=== PATIENT | male | born 1950 | race Caucasian/White ===

== ENCOUNTER → 2016-07-04 | Outpatient (CLI) | payer BC ==
[2016-07-04 17:49] LABS: BLOOD UREA NITROGEN 27 mg/dl (7-18)
== END | disposition home or self-care (01) ==
LOC: C.LABBC 14:12
PROVIDERS: ATTEND Psychiatry & Neurology Neurology
DX: R90.89 Other abnormal findings on diagnostic imaging of central nervous system (principal)

== ENCOUNTER → 2016-07-08 | Outpatient (CLI) | payer BC ==
[~2016-07-08] MED LIST: GADAVIST IV PRN
--- NOTE | 2016-07-08 10:35 | DIAGNOSTIC IMAGING REPORT ---
MRI OF THE BRAIN WITHOUT AND WITH IV CONTRAST CLINICAL HISTORY: ABNORMAL BRAIN MRI COMPARISON STUDY: 08/07/2015 TECHNIQUE: Utilizing a 1.5 Shayy magnet and dedicated coil, multiplanar, multiecho imaging of the brain was performed pre and postcontrast administration. IV administration of 8.5 mL of Gadavist contrast was uneventful. FINDINGS: Unchanged exam. Diffuse dural/meningeal enhancement unchanged from the prior study. Given general stability this may be secondary to a prior incident of intracranial hypotension. Findings of atrophy and chronic small vessel change, are unaltered from the prior exam. No abnormal postcontrast parenchymal enhancement. No abnormal ventricular enhancement. Parasellar region is unremarkable. Internal auditory canals are symmetric. IMPRESSION: 1. Unchanged bilateral dural and meningeal enhancement. 2. Given its unchanged appearance compared to the prior study this is most likely benign, possibly related to a prior episode of hypotension intracranially. 3. Stable components of the cerebellar as well as cerebral atrophy and mild chronic small vessel change. Electronically signed by: Beltran Argueta M.D. 07/08/2016 10:33 AM Dictated Date/Time: 07/08/2016 10:26 AM
== END | disposition home or self-care (01) ==
LOC: C.MRIBC 09:26
PROVIDERS: ATTEND Psychiatry & Neurology Neurology
DX: R90.89 Other abnormal findings on diagnostic imaging of central nervous system (principal)

== ENCOUNTER → 2016-10-25 | Outpatient (CLI) | payer BC ==
[2016-10-25 13:43] LABS: BASO % 0.9 %; BASO ABS # 0.06 K/uL (0-0.2); COMPLETE YES; EOS % 2.3 %; HEMATOCRIT 42.8 % (42-52); IG% 0.2 %; LYMPH % 26.8 %; LYMPH ABS # 1.78 K/uL (1.2-3.4); MEAN CELL VOLUME 88.8 fL (80-100); MEAN CORPUSCULAR HEMOGLOBIN 31.1 pg (25-34); MEAN PLATELET VOLUME 11.1 fL (7.4-10.4); MONO % 10.4 %; NEUT % 59.4 %; PLATELET COUNT 206 K/uL (130-400); RED BLOOD COUNT 4.82 M/uL (4.7-6.1); WHITE BLOOD COUNT 6.63 K/uL (4.8-10.8)
[2016-10-25 13:49] LABS: ESTIMATED AVERAGE GLUCOSE 120 mg/dl; HA1C FLAG Normal (Normal)
[2016-10-25 13:52] LABS: ALB/GLOB RATIO 1.1 (0.9-2); ALT/SGPT 43 U/L (12-78); AST/SGOT 18 U/L (15-37); BLOOD UREA NITROGEN 24 mg/dl (7-18); BUN/CREATININE RATIO 17.1 (10-20); CALCIUM 9.1 mg/dl (8.5-10.1); CARBON DIOXIDE 25 mmol/L (21-32); CHLORIDE 107 mmol/L (98-107); GLUCOSE 108 mg/dl (70-99); SODIUM 140 mmol/L (136-145); URIC ACID 6.3 mg/dl (2.6-7.2)
[2016-10-25 14:03] LABS: ALKALINE PHOSPHATASE 42 U/L (45-117); CHOLESTEROL 142 mg/dl (0-200); CHOLESTEROL/HDL RATIO 3.5; HDL CHOLESTEROL 41 mg/dl; LDL CHOLESTEROL CALCULATED 75 mg/dl; TRIGLYCERIDES 132 mg/dl (0-150); VERY LOW DENSITY LIPOPROT CALC 26 mg/dl
--- NOTE | 2016-11-01 08:32 | CODING QUERY MEDICAL NECESSITY ---
SUPPORTING DIAGNOSIS NEEDED A supporting diagnosis is required for the test/procedure performed on this patient in order for us to be reimbursed by the patient's insurance. Please provide a supporting diagnosis for the following test/procedure listed below next to the test name along with your signature. *If there is no additional diagnosis for this patient that would support the following test/procedure please document that below next to the test/procedure. Test(s)/Procedure(s) that require a supporting diagnosis: * PSA DIAGNOSIS: Provider Signature: Date: Thank you Marti Morelos [employer] Once completed, please kindly fax back to [phone] For questions please call [phone]
== END | disposition home or self-care (01) ==
LOC: C.LABBC 11:39
PROVIDERS: ATTEND Internal Medicine Geriatric Medicine
DX: M10.9 Gout, unspecified (principal); I10 Essential (primary) hypertension; E78.5 Hyperlipidemia, unspecified; R73.9 Hyperglycemia, unspecified; Z11.59 Encounter for screening for other viral diseases; Z12.5 Encounter for screening for malignant neoplasm of prostate

== ENCOUNTER → 2017-11-01 | Outpatient (CLI) | payer BC ==
[2017-11-01 12:55] LABS: BASO % 0.7 %; BASO ABS # 0.05 K/uL (0-0.2); EOS % 1.9 %; EOS ABS # 0.14 K/uL (0-0.5); HEMATOCRIT 44.1 % (42-52); HEMOGLOBIN 15.2 g/dL (14.0-18.0); IG# 0.02 K/uL (0.00-0.02); LYMPH % 20.6 %; LYMPH ABS # 1.55 K/uL (1.2-3.4); MEAN CELL VOLUME 90.6 fL (80-100); MEAN CORPUSCULAR HEMOGLOBIN 31.2 pg (25-34); MEAN CORPUSCULAR HGB CONC 34.5 g/dl (32-36); MEAN PLATELET VOLUME 11.4 fL (7.4-10.4); MONO % 11.8 %; MONO ABS # 0.89 K/uL (0.11-0.59); NEUT % 64.7 %; NEUT ABS # 4.88 K/uL (1.4-6.5); PLATELET COUNT 213 K/uL (130-400); RED CELL DISTRIBUTION WIDTH CV 14.1 % (11.5-14.5); RED CELL DISTRIBUTION WIDTH SD 46.2 fL (36.4-46.3); WHITE BLOOD COUNT 7.53 K/uL (4.8-10.8)
[2017-11-01 13:37] LABS: HEMOGLOBIN A1C 5.9 % (4.5-5.6)
[2017-11-01 13:42] LABS: ALBUMIN 3.9 gm/dl (3.4-5.0); ALKALINE PHOSPHATASE 40 U/L (45-117); ALT/SGPT 40 U/L (12-78); AST/SGOT 12 U/L (15-37); BLOOD UREA NITROGEN 20 mg/dl (7-18); CALCIUM 8.6 mg/dl (8.5-10.1); CARBON DIOXIDE 24 mmol/L (21-32); CHOLESTEROL 114 mg/dl (0-200); CREATININE 1.36 mg/dl (0.60-1.40); GLUCOSE 109 mg/dl (70-99); LDL CHOLESTEROL CALCULATED 48 mg/dl; POTASSIUM 3.9 mmol/L (3.5-5.1); SODIUM 139 mmol/L (136-145); TOTAL PROTEIN 7.7 gm/dl (6.4-8.2)
== END | disposition home or self-care (01) ==
LOC: C.LABBC 09:34
PROVIDERS: ATTEND Internal Medicine Geriatric Medicine
DX: Z00.00 Encounter for general adult medical examination without abnormal findings (principal); I10 Essential (primary) hypertension; E78.5 Hyperlipidemia, unspecified; R73.9 Hyperglycemia, unspecified